=== PATIENT | male | born 1950 | race Caucasian/White ===

== ENCOUNTER 2019-09-25 05:33 | Outpatient (RCR) | payer MEDICARE ==
[~2019-09-25] VITALS: Ht 177 cm; Wt 109.0 kg
[~2019-09-25 05:33] MED LIST: CIPR500T78 PO; CODE-54 PO
== END 2019-09-25 10:14 | disposition home or self-care (01) ==
LOC: PREOP 05:33
PROVIDERS: ATTEND Specialist
DX: Z01.812 Encounter for preprocedural laboratory examination (principal); C61 Malignant neoplasm of prostate; Z20.828 Contact with and (suspected) exposure to other viral communicable diseases
CPT/HCPCS: 87635

== ENCOUNTER → 2019-09-27 | Day surgery (SDC) | payer MEDICARE ==
[~2019-09-27] VITALS: Ht 177 cm; Wt 109.0 kg
[2019-09-27] VITALS (9 sets, daily range): BP systolic 106–152; BP diastolic 58–84
[~2019-09-27] MED LIST changes: +LACTATED RINGERS 1,000 ML IV PRN; +LEVOFLOXACIN 500 MG/100 ML IV 100 ML IV ONE; +LIDOCAINE PF 2% 5 ML (XYLOCAINE) VIAL ONE; +MIDAZOLAM 2 MG/2 ML (VERSED) VIAL ONE; +ONDANSETRON 4 MG/2 ML (SDV) Z0FRAN IVP PRN; +ONDANSETRON 4 MG/2 ML (SDV) Z0FRAN ONE; +SEVOFLURANE (ULTANE) 15 ML INHAL SOLN ONE; +fentaNYL INJECTION 100 MCG/2 ML AMP ONE; +morphine INJ 10 MG/ML 1ML (SYR OR VIAL) IVP ONE; +proPOfol 200 MG/20 ML (DIPRIVAN) VIAL IV ONE
--- NOTE | 2019-09-27 13:10 | Progress Note-Pre Operative ---
Pre-Operative Progress Note H&P Reviewed The H&P was reviewed, patient examined and no changes noted. 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
--- NOTE | 2019-09-27 13:15 | Discharge Inst-Simple/Standard ---
Discharge Inst-Standard Reconcile Patient Problems Problems Reviewed?: Yes Discharge Medications New, Converted or Re-Newed RX: Other (Patient already has) Patient Instructions/Follow Up Plan of Care/Instructions/FU: 1) CT simulation with IV/PO at [facility] 10/03 at 8:30 a.m. Activity as Tolerated: Yes Discharge Diet: No Restrictions KAMERON VALDEZ MD Sep 27, 2019 13:15
--- NOTE | 2019-09-27 16:05 | Anesthesia-General Post-Op ---
General Patient Condition Mental Status/LOC: Same as Preop Cardiovascular: Satisfactory Nausea/Vomiting: Absent Respiratory: Satisfactory Pain: Controlled Complications: Absent Post Op Complications Complications None Follow Up Care/Instructions Patient Instructions None needed. Anesthesia/Patient Condition Patient Condition Patient is doing well, no complaints, stable vital signs, no apparent adverse anesthesia problems. No complications reported per nursing. CARMENZA HUGHES CRNA Sep 27, 2019 16:04
--- NOTE | 2019-09-27 16:20 | Progress Note-Post Operative ---
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
--- NOTE | 2019-09-27 17:15 | NUR ---
PERINEUM EXAMINED, NO BLEEDING OR DRAINAGE NOTED
== END ==
LOC: SDC 12:45
PROVIDERS: ATTEND Specialist
DX: C61 Malignant neoplasm of prostate (principal); G47.33 Obstructive sleep apnea (adult) (pediatric); I48.91 Unspecified atrial fibrillation; M06.9 Rheumatoid arthritis, unspecified; Z79.899 Other long term (current) drug therapy; Z79.82 Long term (current) use of aspirin; Z83.3 Family history of diabetes mellitus; Z80.42 Family history of malignant neoplasm of prostate; Z80.41 Family history of malignant neoplasm of ovary

== ENCOUNTER 2020-11-21 09:04 | Outpatient (RCR) | payer MEDICARE, OTHER ==
[~2020-11-21 09:04] MED LIST changes: -LACTATED RINGERS 1,000 ML IV PRN; -LEVOFLOXACIN 500 MG/100 ML IV 100 ML IV ONE; -LIDOCAINE PF 2% 5 ML (XYLOCAINE) VIAL ONE; -MIDAZOLAM 2 MG/2 ML (VERSED) VIAL ONE; -ONDANSETRON 4 MG/2 ML (SDV) Z0FRAN IVP PRN; -ONDANSETRON 4 MG/2 ML (SDV) Z0FRAN ONE; -SEVOFLURANE (ULTANE) 15 ML INHAL SOLN ONE; -fentaNYL INJECTION 100 MCG/2 ML AMP ONE; -morphine INJ 10 MG/ML 1ML (SYR OR VIAL) IVP ONE; -proPOfol 200 MG/20 ML (DIPRIVAN) VIAL IV ONE
== END 2021-02-19 | disposition home or self-care (01) ==
LOC: ONC 09:04
PROVIDERS: ATTEND Radiology Radiation Oncology
DX: C61 Malignant neoplasm of prostate (principal)
CPT/HCPCS: 99213

== ENCOUNTER 2022-01-05 09:26 | Outpatient (RCR) | payer MEDICARE | END 2022-01-12 | disposition home or self-care (01) | LOC: ONC 09:26 | PROVIDERS: ATTEND Radiology Radiation Oncology | DX: C61 Malignant neoplasm of prostate (principal); Z12.5 Encounter for screening for malignant neoplasm of prostate | CPT/HCPCS: 36415; 84153 ==

== ENCOUNTER 2022-06-16 11:15 | Outpatient (RCR) | payer MEDICARE | END 2022-07-12 | disposition home or self-care (01) | LOC: ONC 11:15 | PROVIDERS: ATTEND Radiology Radiation Oncology | DX: C61 Malignant neoplasm of prostate (principal) | CPT/HCPCS: 36415; 84153 ==

== ENCOUNTER 2022-12-25 09:24 | Outpatient (RCR) | payer MEDICARE | END 2023-01-12 | disposition home or self-care (01) | LOC: ONC 09:24 | PROVIDERS: ATTEND Radiology Radiation Oncology | DX: C61 Malignant neoplasm of prostate (principal) | CPT/HCPCS: 84153 ==